=== PATIENT | male | born 1975 | race Caucasian/White ===

== ENCOUNTER 2018-06-05 09:30 | Emergency (ER) | payer MEDICAID ==
[~2018-06-05] VITALS: Ht 188 cm; Wt 81.8 kg
[2018-06-05] MEDS ORDERED: LORazepam 2 mg/ml vial IM ONE (09:40)
[2018-06-05 10:25] VITALS: BP 139/82
== END 2018-06-05 10:41 ==
LOC: ER 09:31
DX: Z02.89 Encounter for other administrative examinations (principal); S01.01XA Laceration without foreign body of scalp, initial encounter; S50.12XA Contusion of left forearm, initial encounter; R45.1 Restlessness and agitation; Y04.0XXA Assault by unarmed brawl or fight, initial encounter; Y93.89 Activity, other specified; Y92.89 Other specified places as the place of occurrence of the external cause; Y99.9 Unspecified external cause status
CPT/HCPCS: 73090; 96372; 99284; J2060

== ENCOUNTER 2021-05-21 01:05 | Emergency (ER) | payer MEDICAID ==
[~2021-05-21] VITALS: Ht 188 cm; Wt 94.8 kg
[2021-05-21 01:24] VITALS: BP 132/87
[2021-05-21] MEDS ORDERED: BACL10TA7 PO (17:21)
[2021-05-21] MEDS ORDERED: SERT-434 PO (17:21)
[2021-05-21] MEDS ORDERED: ARIP10TA57 PO (17:21)
== END 2021-05-21 03:40 | disposition left against medical advice (07) ==
LOC: ER 01:06
DX: R10.9 Unspecified abdominal pain (principal); R31.9 Hematuria, unspecified; Z53.21 Procedure and treatment not carried out due to patient leaving prior to being seen by health care provider

== ENCOUNTER 2021-05-21 07:36 | Emergency (ER) | payer MEDICAID ==
[~2021-05-21] VITALS: Ht 188 cm; Wt 90.9 kg
[2021-05-21 08:14] VITALS: BP 125/95
[2021-05-21 08:33] LABS: LYMPHOCYTES # (AUTO) 1.3 X10'3 (1.1-4.8); MONOCYTES # (AUTO) 1.5 X10'3 (0-0.9); NEUTROPHILS # (AUTO) 14.3 X10'3 (1.8-7.7); NEUTROPHILS % (AUTO) 83.1 % (42-75); WHITE BLOOD COUNT 17.2 X10'3 (4.5-11.0)
[2021-05-21 08:35] LABS: BASOPHILS # (AUTO) 0.1 X10'3 (0-0.2); BASOPHILS % (AUTO) 0.4 % (0-1); EOSINOPHILS % (AUTO) 0.1 % (0-6); HEMATOCRIT 44.2 % (42.0-52.0); LYMPHOCYTES % (AUTO) 7.8 % (21-51); MEAN CORPUSCULAR HGB CONC 33.9 g/dL (33.0-36.5); MEAN CORPUSCULAR VOLUME 97.6 FL (78-98); MEAN PLATELET VOLUME 8.7 FL (7.4-10.4); MONOCYTES % (AUTO) 8.6 % (2-12); PLATELET COUNT 208 X10'3 (140-440); RED BLOOD COUNT 4.53 X10'6 (4.70-6.10)
[2021-05-21 08:39] LABS: ALANINE AMINOTRANSFERASE 79 U/L (12-78); ALBUMIN 3.3 G/DL (3.4-5.0); ALBUMIN/GLOBULIN RATIO 0.9 (1.1-1.5); ALKALINE PHOSPHATASE 109 IU/L (46-116); ANION GAP 13 (8-16); ASPARTATE AMINO TRANSFERASE 31 U/L (10-37); BILIRUBIN,TOTAL 1.6 MG/DL (0.1-1.0); BLOOD UREA NITROGEN 10 MG/DL (7-18); CALCIUM 8.4 MG/DL (8.5-10.1); CHLORIDE 99 MMOL/L (99-107); CREATININE 0.83 MG/DL (0.60-1.10); GLUCOSE 110 MG/DL (70-104); LIPASE 539 U/L (73-393); POTASSIUM 3.9 MMOL/L (3.5-5.1); SODIUM 133 MMOL/L (135-145); TOTAL PROTEIN 7.1 G/DL (6.4-8.2); eGFR > 90 ML/MIN
[2021-05-21] MEDS ORDERED: iohexol 300mg/ml 100ml inj. ONE (11:47)
[2021-05-21] MEDS ORDERED: acetaminophen 325mg tablet PO PRN ×2 (14:15)
[2021-05-21] MEDS ORDERED: mag hydrox/Alum hydrox/simeth 30ml oral suspension PO PRN (14:15)
[2021-05-21] MEDS ORDERED: potassium Cl 40MEQ/1/2NS 520ml 520 ML IV PRN ×2 (14:15)
[2021-05-21] MEDS ORDERED: magnesium 2GM in 50ml NS 50 ML IV PRN (14:15)
[2021-05-21] MEDS ORDERED: HYDROcodone/acetaminophen 5mg/325mg tablet PO PRN (14:15)
[2021-05-21] MEDS ORDERED: haloperidol lactate 5mg/ml inj IM PRN (14:15)
[2021-05-21] MEDS ORDERED: normal saline 1000ml 1,000 ML IV SCH (14:15)
[2021-05-21] MEDS ORDERED: potassium Cl 20 mEq SR tablet PO PRN ×2 (14:15)
[2021-05-21] MEDS ORDERED: HYDROcodone/acetaminophen 10/325mg tab PO PRN (14:15)
[2021-05-21] MEDS ORDERED: ondansetron/PF 4mg/2ml inj IV PRN (14:15)
[2021-05-21] MEDS ORDERED: magnesium hydroxide 30ml (MOM) UD suspension PO PRN (14:15)
[2021-05-21] MEDS ORDERED: thiamine inj. 100 MG in normal saline 100ml IV soln 100 ML IV ONE (14:15)
[2021-05-21] MEDS ORDERED: LORazepam 2 mg/ml vial IV PRN (14:15)
[2021-05-21] MEDS ORDERED: haloperidol 5mg tablet PO PRN (14:15)
[2021-05-21] MEDS ORDERED: magnesium 4gm in 100ml NS 100 ML IV PRN (14:15)
[2021-05-21] MEDS ORDERED: BACL10TA7 PO (17:21)
[2021-05-21] MEDS ORDERED: SERT-434 PO (17:21)
[2021-05-21] MEDS ORDERED: ARIP10TA57 PO (17:21)
[2021-05-21] MEDS ORDERED: docusate sod 100mg capsule PO SCH (20:00)
[2021-05-21] MEDS ORDERED: enoxaparin 40mg/0.4ml syringe SQ SCH (20:00)
[2021-05-21] MEDS ORDERED: K and/or MAG REPLACEMENT MC SCH (20:00)
[2021-05-22] MEDS ORDERED: folic acid 1mg/0.2ml inj IV SCH (08:00)
[2021-05-22] MEDS ORDERED: thiamine inj. 100 MG in normal saline 100ml IV soln 100 ML IV SCH (08:00)
[2021-05-22] MEDS ORDERED: folic acid inj. 2 MG, thiamine inj. 100 MG, MVI, adult No.4 with vit. K 10 ML in dextro... IV SCH ×4 (08:00)
[2021-05-23] MEDS ORDERED: LORazepam 2 mg/ml vial IV PRN (14:15)
[2021-05-23] MEDS ORDERED: LORazepam 1 MG tablet PO PRN (14:15)
[2021-05-25] MEDS ORDERED: LORazepam 1 MG tablet PO PRN (14:15)
[2021-05-25] MEDS ORDERED: LORazepam 2 mg/ml vial IV PRN (14:15)
== END 2021-05-21 20:31 | disposition left against medical advice (07) ==
LOC: ER 07:37 → UNDOADMIN 14:20 → ED HOLD 14:20 → UNDODISIN 20:31
DX: K85.90 Acute pancreatitis without necrosis or infection, unspecified (principal); F10.10 Alcohol abuse, uncomplicated; R10.31 Right lower quadrant pain; R11.2 Nausea with vomiting, unspecified; R19.7 Diarrhea, unspecified; Y90.9 Presence of alcohol in blood, level not specified
CPT/HCPCS: 36415; 74176; 80053; 83605; 83690; 85025; 87040; 99285; Q9967; G0378

== ENCOUNTER 2021-05-24 06:51 | Inpatient (IN) | payer MEDICAID ==
[~2021-05-24] VITALS: Ht 188 cm; Wt 90.0 kg
[~2021-05-24 06:51] MED LIST: ARIP10TA57 PO; BACL10TA7 PO; SERT-434 PO
[2021-05-24 07:51] LABS: COLOR,URINE YELLOW (Yellow); UA COLLECTION TYPE CLN CATCH MIDSTREAM
[2021-05-24 07:52] LABS: CLARITY,URINE CLOUDY (Clear)
[2021-05-24 07:53] LABS: GLUCOSE, URINE NEGATIVE (Neg); KETONES,URINE >=160 mg/dl (Neg); PROTEIN,URINE TRACE mg/dl (Neg)
[2021-05-24 07:54] LABS: LEUKOCYTE ESTERASE ,URINE NEGATIVE (Neg); NITRITES, URINE NEGATIVE (Neg); OCCULT BLOOD,URINE TRACE-INTACT (Neg); UROBILINOGEN,URINE 0.2 E.U/dL (0.2-1.0)
[2021-05-24 07:58] LABS: HYALINE CASTS 0-3 /LPF (NEGATIVE); SQUAMOUS EPITHELIAL CELL,UR FEW /LPF (FEW)
[2021-05-24 07:59] LABS: BACTERIA,URINE 1+ /HPF (Neg); MUCUS STRANDS MANY /LPF (Neg)
[2021-05-24 08:00] LABS: RBC,URINE 0-2 /HPF (0-2)
[2021-05-24] MEDS ORDERED: ondansetron/PF 4mg/2ml inj IV ONE (09:25)
[2021-05-24] MEDS ORDERED: normal saline 1000ML IV soln IVB ONE (09:25)
--- NOTE | 2021-05-24 09:42 | NUR ---
RN not comfortable starting PIV to patient in [facility], pt AMA'd few days ago and ambulating self in front of the lobby and back to chair. [facility] aware and will wait until lab results are back.
[2021-05-24 10:37] LABS: BASOPHILS # (AUTO) 0.1 X10'3 (0-0.2); BASOPHILS % (AUTO) 0.5 % (0-1); EOSINOPHILS # (AUTO) 0.1 X10'3 (0-0.9); EOSINOPHILS % (AUTO) 0.4 % (0-6); HEMATOCRIT 44.3 % (42.0-52.0); HEMOGLOBIN 15.1 g/dl (14.0-17.9); LYMPHOCYTES # (AUTO) 1.7 X10'3 (1.1-4.8); LYMPHOCYTES % (AUTO) 11.2 % (21-51); MEAN CORPUSCULAR HEMOGLOBIN 32.6 PG (27.0-31.0); MEAN CORPUSCULAR HGB CONC 34.1 g/dL (33.0-36.5); MEAN CORPUSCULAR VOLUME 95.6 FL (78-98); MEAN PLATELET VOLUME 7.2 FL (7.4-10.4); MONOCYTES # (AUTO) 2.8 X10'3 (0-0.9); MONOCYTES % (AUTO) 18.5 % (2-12); NEUTROPHILS # (AUTO) 10.6 X10'3 (1.8-7.7); NEUTROPHILS % (AUTO) 69.4 % (42-75); PLATELET COUNT 486 X10'3 (140-440); RED BLOOD COUNT 4.64 X10'6 (4.70-6.10); RED CELL DISTRIBUTION WIDTH 14.2 % (11.5-14.5); WHITE BLOOD COUNT 15.2 X10'3 (4.5-11.0)
[2021-05-24] MEDS ORDERED: CefTRIAXone/D5W-Rocephin 1gm 50 ML IV ONE (10:45)
[2021-05-24] MEDS ORDERED: normal saline 1000ML IV soln IV ONE (10:45)
[2021-05-24 11:01] LABS: ALANINE AMINOTRANSFERASE 108 U/L (12-78); ALBUMIN 3.3 G/DL (3.4-5.0); ALBUMIN/GLOBULIN RATIO 0.7 (1.1-1.5); ALKALINE PHOSPHATASE 154 IU/L (46-116); ANION GAP 18 (8-16); ASPARTATE AMINO TRANSFERASE 70 U/L (10-37); BILIRUBIN,TOTAL 0.8 MG/DL (0.1-1.0); BLOOD UREA NITROGEN 11 MG/DL (7-18); BUN/CREATININE RATIO 13.8 (5.4-32.0); CALCIUM 8.8 MG/DL (8.5-10.1); CHLORIDE 94 MMOL/L (99-107); GLUCOSE 96 MG/DL (70-104); LIPASE 631 U/L (73-393); POTASSIUM 3.2 MMOL/L (3.5-5.1); SODIUM 133 MMOL/L (135-145); TOTAL CARBON DIOXIDE 20.6 MMOL/L (24-32); TOTAL PROTEIN 8.1 G/DL (6.4-8.2); eGFR > 90 ML/MIN
[2021-05-24] MEDS ORDERED: morphine 4 MG/ML inj SYRINge IV ONE ×2 (11:40→13:20)
[2021-05-24 11:42] LABS: PLATELET ESTIMATE INCREASED; TOTAL CELLS COUNTED 100
[2021-05-24 11:45] LABS: BANDS% (MANUAL) 7 % (0-10); LARGE PLATELETS FEW; METAMYLEOCYTES% (MANUAL) 1 % (0-0); POLYCHROMASIA FEW; TOXIC GRANULATION 1+
[2021-05-24] MEDS ORDERED: potassium Cl 20 mEq SR tablet PO PRN (13:25)
[2021-05-24] MEDS ORDERED: potassium Cl 40MEQ/1/2NS 520ml 520 ML IV PRN ×2 (13:25)
[2021-05-24] MEDS ORDERED: haloperidol 5mg tablet PO PRN (13:25)
[2021-05-24] MEDS ORDERED: HYDROcodone/acetaminophen 5mg/325mg tablet PO PRN (13:25)
[2021-05-24] MEDS ORDERED: dextrose 50%-water 50ml dispensing syringe IV PRN (13:25)
[2021-05-24] MEDS ORDERED: LORazepam 1 MG tablet PO PRN (13:25)
[2021-05-24] MEDS ORDERED: mag hydrox/Alum hydrox/simeth 30ml oral suspension PO PRN (13:25)
[2021-05-24] MEDS ORDERED: ondansetron/PF 4mg/2ml inj IV PRN (13:25)
[2021-05-24] MEDS ORDERED: magnesium 4gm in 100ml NS 100 ML IV PRN (13:25)
[2021-05-24] MEDS ORDERED: morphine 2 MG/ML inj. syringe IV PRN (13:25)
[2021-05-24] MEDS ORDERED: diphenhydrAMINE 25mg capsule PO PRN (13:25)
[2021-05-24] MEDS ORDERED: morphine 4 MG/ML inj SYRINge ONE (13:25)
[2021-05-24] MEDS ORDERED: haloperidol lactate 5mg/ml inj IM PRN (13:25)
[2021-05-24] MEDS ORDERED: LORazepam 2 mg/ml vial IV PRN (13:25)
[2021-05-24] MEDS ORDERED: magnesium 2GM in 50ml NS 50 ML IV PRN (13:25)
[2021-05-24] MEDS ORDERED: magnesium Cl slow-release 64mg tablet PO PRN (13:25)
[2021-05-24] MEDS ORDERED: bisacodyl 10mg suppository rectal RC PRN (13:25)
[2021-05-24] MEDS ORDERED: acetaminophen 325mg tablet PO PRN ×2 (13:25)
[2021-05-24] MEDS ORDERED: magnesium hydroxide 30ml (MOM) UD suspension PO PRN (13:25)
[2021-05-24] MEDS ORDERED: thiamine 100mg/ml 2ml inj. IV ONE (13:25)
[2021-05-24] MEDS ORDERED: acetaminophen 650mg rectal suppository RC PRN (13:25)
[2021-05-24 14:25] LABS: HEMOGLOBIN A1C 5.5 % (4.5-6.2)
[2021-05-24] MEDS: HYDROcodone/acetaminophen 10/325mg tab PO PRN (14:31)
[2021-05-24] MEDS: dextrose 5%-normal saline 1,000 ML IV SCH ×2 (14:39→21:24)
[2021-05-24 15:18] LABS: HIV ANTIBODY 1&2 RAPID NON-REACTIVE (Neg)
[2021-05-24] MEDS: morphine 2 MG/ML inj. syringe IV PRN ×2 (17:54→23:41)
[2021-05-24] MEDS: K and/or MAG REPLACEMENT MC SCH (18:34)
[2021-05-24 19:05] LABS: URINE AMPHETAMINE SCREEN NEGATIVE (Neg); URINE BARBITUATE SCREEN NEGATIVE (Neg); URINE BENZODIAZEPINES SCREEN POSITIVE (Neg); URINE CANNABINOID SCREEN POSITIVE (Neg); URINE COCAINE SCREEN NEGATIVE (Neg); URINE METHADONE SCREEN NEGATIVE (Neg); URINE OPIATE SCREEN NEGATIVE (Neg); URINE PHENCYCLIDINE SCREEN NEGATIVE (Neg)
[2021-05-24] MEDS: docusate sod 100mg capsule PO SCH (20:00)
[2021-05-24] MEDS: heparin, porcine 5000 units/ml vial SQ SCH (20:53)
[2021-05-24] MEDS: diatr meglu/diatrizoate 30ml oral sol.-(3 dose) bottle PO SCH (20:56)
[2021-05-25] MEDS: dextrose 5%-normal saline 1,000 ML IV SCH ×3 (00:33→21:57)
[2021-05-25] MEDS: diatr meglu/diatrizoate 30ml oral sol.-(3 dose) bottle PO SCH ×2 (07:20→10:06)
[2021-05-25 07:21] LABS: BASOPHILS % (AUTO) 0.3 % (0-1); EOSINOPHILS # (AUTO) 0.1 X10'3 (0-0.9); EOSINOPHILS % (AUTO) 0.5 % (0-6); HEMATOCRIT 37.8 % (42.0-52.0); HEMOGLOBIN 12.9 g/dl (14.0-17.9); LYMPHOCYTES # (AUTO) 1.4 X10'3 (1.1-4.8); LYMPHOCYTES % (AUTO) 7.8 % (21-51); MEAN CORPUSCULAR HEMOGLOBIN 32.2 PG (27.0-31.0); MEAN CORPUSCULAR HGB CONC 34.2 g/dL (33.0-36.5); MEAN CORPUSCULAR VOLUME 94.3 FL (78-98); MEAN PLATELET VOLUME 7.2 FL (7.4-10.4); MONOCYTES # (AUTO) 2.4 X10'3 (0-0.9); MONOCYTES % (AUTO) 13.5 % (2-12); NEUTROPHILS # (AUTO) 14.1 X10'3 (1.8-7.7); NEUTROPHILS % (AUTO) 77.9 % (42-75); PLATELET COUNT 476 X10'3 (140-440); RED BLOOD COUNT 4.01 X10'6 (4.70-6.10)
[2021-05-25] MEDS: docusate sod 100mg capsule PO SCH ×2 (07:21→20:00)
[2021-05-25] MEDS: multivitamins, therapeutics tablet PO SCH (07:21)
[2021-05-25] MEDS: folic acid 1mg tablet PO SCH (07:21)
[2021-05-25] MEDS: ARIPIPRAZOLE 10 MG TABLET PO SCH (07:21)
[2021-05-25] MEDS: sertraline 50mg tablet PO SCH (07:21)
[2021-05-25] MEDS: heparin, porcine 5000 units/ml vial SQ SCH ×2 (07:22→20:31)
[2021-05-25] MEDS: CefTRIAXone/D5W-Rocephin 1gm 50 ML IV SCH (07:22)
[2021-05-25] MEDS: potassium Cl 20 mEq SR tablet PO PRN (07:22)
[2021-05-25] MEDS: thiamine 100mg tablet PO SCH (07:22)
[2021-05-25] MEDS: morphine 2 MG/ML inj. syringe IV PRN ×2 (07:46→20:32)
[2021-05-25] MEDS: K and/or MAG REPLACEMENT MC SCH ×2 (07:47→20:00)
[2021-05-25 07:51] LABS: ALANINE AMINOTRANSFERASE 78 U/L (12-78); ALBUMIN 2.5 G/DL (3.4-5.0); ALBUMIN/GLOBULIN RATIO 0.7 (1.1-1.5); ALKALINE PHOSPHATASE 158 IU/L (46-116); ANION GAP 10 (8-16); ASPARTATE AMINO TRANSFERASE 47 U/L (10-37); BILIRUBIN,TOTAL 0.6 MG/DL (0.1-1.0); BLOOD UREA NITROGEN 5 MG/DL (7-18); BUN/CREATININE RATIO 6.6 (5.4-32.0); CALCIUM 8.2 MG/DL (8.5-10.1); CHLORIDE 101 MMOL/L (99-107); CHOL/HDL RATIO 4.8 (0.00-4.99); CHOLESTEROL 125 MG/DL (0-200); CREATININE 0.76 MG/DL (0.60-1.10); GLUCOSE 143 MG/DL (70-104); HDL CHOLESTEROL 26 MG/DL (35-60); LDL CHOLESTEROL 68 MG/DL (50-100); LIPASE 672 U/L (73-393); MAGNESIUM 2.3 MG/DL (1.5-2.4); PHOSPHORUS 2.7 MG/DL (2.3-4.5); POTASSIUM 3.3 MMOL/L (3.5-5.1); SODIUM 136 MMOL/L (135-145); TOTAL CARBON DIOXIDE 25.2 MMOL/L (24-32); TOTAL PROTEIN 6.3 G/DL (6.4-8.2); TRIGLYCERIDES 121 MG/DL (20-135); eGFR > 90 ML/MIN
[2021-05-25] MEDS ORDERED: iohexol 300mg/ml 100ml inj. ONE (10:01)
[2021-05-25] MEDS: HYDROcodone/acetaminophen 10/325mg tab PO PRN (14:40)
--- NOTE | 2021-05-25 15:07 | NUR ---
spoke with dr. shyanne abebe to give clear liquid diet.
[2021-05-25] MEDS: lactobacillus rhamnosus 10,000 MMU CELLS/CAPSULE PO SCH (20:32)
[2021-05-26] MEDS: metroNIDAZOLE-Flagyl 500mg/NS 100 ML IV SCH ×4 (00:25→22:00)
[2021-05-26] MEDS: morphine 2 MG/ML inj. syringe IV PRN ×3 (00:32→10:49)
[2021-05-26 01:43] LABS: BASOPHILS # (AUTO) 0.1 X10'3 (0-0.2); BASOPHILS % (AUTO) 0.7 % (0-1); EOSINOPHILS # (AUTO) 0.2 X10'3 (0-0.9); HEMATOCRIT 37.3 % (42.0-52.0); HEMOGLOBIN 12.6 g/dl (14.0-17.9); LYMPHOCYTES # (AUTO) 1.6 X10'3 (1.1-4.8); LYMPHOCYTES % (AUTO) 10.5 % (21-51); MEAN CORPUSCULAR HEMOGLOBIN 31.8 PG (27.0-31.0); MEAN CORPUSCULAR HGB CONC 33.6 g/dL (33.0-36.5); MEAN CORPUSCULAR VOLUME 94.7 FL (78-98); MEAN PLATELET VOLUME 7.4 FL (7.4-10.4); MONOCYTES # (AUTO) 1.8 X10'3 (0-0.9); MONOCYTES % (AUTO) 11.3 % (2-12); NEUTROPHILS % (AUTO) 76.5 % (42-75); PLATELET COUNT 501 X10'3 (140-440); RED BLOOD COUNT 3.94 X10'6 (4.70-6.10); RED CELL DISTRIBUTION WIDTH 14.5 % (11.5-14.5); WHITE BLOOD COUNT 15.7 X10'3 (4.5-11.0)
[2021-05-26 01:50] LABS: ALANINE AMINOTRANSFERASE 81 U/L (12-78); ALBUMIN 2.4 G/DL (3.4-5.0); ALBUMIN/GLOBULIN RATIO 0.6 (1.1-1.5); ALKALINE PHOSPHATASE 115 IU/L (46-116); ANION GAP 10 (8-16); ASPARTATE AMINO TRANSFERASE 41 U/L (10-37); BILIRUBIN,TOTAL 0.4 MG/DL (0.1-1.0); BLOOD UREA NITROGEN 3 MG/DL (7-18); BUN/CREATININE RATIO 4.6 (5.4-32.0); CALCIUM 8.2 MG/DL (8.5-10.1); CHLORIDE 102 MMOL/L (99-107); CREATININE 0.65 MG/DL (0.60-1.10); GLUCOSE 103 MG/DL (70-104); LIPASE 533 U/L (73-393); MAGNESIUM 2.3 MG/DL (1.5-2.4); PHOSPHORUS 3.3 MG/DL (2.3-4.5); POTASSIUM 3.1 MMOL/L (3.5-5.1); SODIUM 136 MMOL/L (135-145); TOTAL CARBON DIOXIDE 24.2 MMOL/L (24-32); TOTAL PROTEIN 6.2 G/DL (6.4-8.2); eGFR > 90 ML/MIN
[2021-05-26] MEDS: potassium Cl 20 mEq SR tablet PO PRN (05:48)
[2021-05-26] MEDS: thiamine 100mg tablet PO SCH (08:03)
[2021-05-26] MEDS: docusate sod 100mg capsule PO SCH ×2 (08:03→19:57)
[2021-05-26] MEDS: CefTRIAXone/D5W-Rocephin 1gm 50 ML IV SCH (08:03)
[2021-05-26] MEDS: heparin, porcine 5000 units/ml vial SQ SCH ×2 (08:04→22:00)
[2021-05-26] MEDS: folic acid 1mg tablet PO SCH (08:04)
[2021-05-26] MEDS: sertraline 50mg tablet PO SCH (08:04)
[2021-05-26] MEDS: dextrose 5%-normal saline 1,000 ML IV SCH ×3 (09:36→21:59)
[2021-05-26 13:16] LABS: HBSAG SCREEN Negative (Negative); HEP A AB, IGM Negative (Negative); HEPATITIS C ANTIBODY <0.1 s/co ratio (0.0-0.9)
[2021-05-26] MEDS: K and/or MAG REPLACEMENT MC SCH ×2 (18:42→19:15)
[2021-05-26] MEDS: lactobacillus rhamnosus 10,000 MMU CELLS/CAPSULE PO SCH ×2 (18:43→19:57)
[2021-05-26] MEDS: multivitamins, therapeutics tablet PO SCH (18:44)
--- NOTE | 2021-05-26 18:46 | NUR ---
0800 MEDICATIONS FLAGYL, THERAGIN, CULTURELLE, AND ABILIFY NOT GIVEN. FLAGYL RETIMED. ASKED PHARMACY ABOUT ADMINISTRATION OF ABILIFY REJI.
--- NOTE | 2021-05-26 18:47 | NUR ---
Pts daily abilify is not given from 8 am per emar. Pharmacist, Keshia, reports ok to give the dose now and ok to continue on am schedule tomorrow.
--- NOTE | 2021-05-26 19:40 | NUR ---
Pt broght to room 360a from er. Oriented to room and routine. received report from Jens at 1925. Addendum: 05/26/21 at 1999 by Nicolasa Valle RN Amended: Links added.
[2021-05-26 19:45] VITALS: BP 148/86
[2021-05-26] MEDS: ARIPIPRAZOLE 10 MG TABLET PO SCH (19:57)
[2021-05-26] MEDS: LORazepam 2 mg/ml vial IV PRN (22:00)
[2021-05-27] VITALS: BP 140/81
[2021-05-27] MEDS: morphine 2 MG/ML inj. syringe IV PRN ×5 (01:13→23:14)
[2021-05-27] MEDS: dextrose 5%-normal saline 1,000 ML IV SCH ×3 (05:25→23:10)
[2021-05-27] MEDS: LORazepam 2 mg/ml vial IV PRN ×4 (05:43→23:12)
[2021-05-27 06:13] LABS: BASOPHILS # (AUTO) 0.1 X10'3 (0-0.2); BASOPHILS % (AUTO) 0.6 % (0-1); EOSINOPHILS # (AUTO) 0.2 X10'3 (0-0.9); EOSINOPHILS % (AUTO) 1.7 % (0-6); HEMATOCRIT 36.2 % (42.0-52.0); HEMOGLOBIN 12.3 g/dl (14.0-17.9); LYMPHOCYTES # (AUTO) 1.5 X10'3 (1.1-4.8); MEAN CORPUSCULAR HEMOGLOBIN 32.6 PG (27.0-31.0); MEAN CORPUSCULAR VOLUME 95.9 FL (78-98); MEAN PLATELET VOLUME 7.3 FL (7.4-10.4); MONOCYTES # (AUTO) 1.2 X10'3 (0-0.9); MONOCYTES % (AUTO) 10.8 % (2-12); NEUTROPHILS # (AUTO) 8.5 X10'3 (1.8-7.7); NEUTROPHILS % (AUTO) 73.9 % (42-75); PLATELET COUNT 516 X10'3 (140-440); RED BLOOD COUNT 3.77 X10'6 (4.70-6.10); RED CELL DISTRIBUTION WIDTH 14.5 % (11.5-14.5); WHITE BLOOD COUNT 11.5 X10'3 (4.5-11.0)
--- NOTE | 2021-05-27 06:39 | NUR ---
Problems reprioritized. Patient report given, questions answered & plan of care reviewed with JANE GONZALEZ. Addendum: 05/27/21 at 0639 by Nicolasa Valle RN Amended: Links added.
[2021-05-27 06:42] LABS: ALANINE AMINOTRANSFERASE 56 U/L (12-78); ALBUMIN 2.3 G/DL (3.4-5.0); ALBUMIN/GLOBULIN RATIO 0.7 (1.1-1.5); ALKALINE PHOSPHATASE 116 IU/L (46-116); ANION GAP 9 (8-16); ASPARTATE AMINO TRANSFERASE 20 U/L (10-37); BILIRUBIN,TOTAL 0.4 MG/DL (0.1-1.0); BLOOD UREA NITROGEN 2 MG/DL (7-18); BUN/CREATININE RATIO 2.9 (5.4-32.0); CHLORIDE 102 MMOL/L (99-107); GLUCOSE 108 MG/DL (70-104); LIPASE 448 U/L (73-393); MAGNESIUM 2.2 MG/DL (1.5-2.4); PHOSPHORUS 3.8 MG/DL (2.3-4.5); SODIUM 136 MMOL/L (135-145); TOTAL CARBON DIOXIDE 25.5 MMOL/L (24-32); TOTAL PROTEIN 5.8 G/DL (6.4-8.2); eGFR > 90 ML/MIN
--- NOTE | 2021-05-27 06:51 | NUR ---
Patient in room [facility]. I have received report from ROSALIO LARA and had the opportunity to ask questions and assume patient care.
[2021-05-27] MEDS: metroNIDAZOLE-Flagyl 500mg/NS 100 ML IV SCH ×3 (07:16→14:58)
[2021-05-27] MEDS: lactobacillus rhamnosus 10,000 MMU CELLS/CAPSULE PO SCH ×2 (07:18→20:27)
[2021-05-27] MEDS: thiamine 100mg tablet PO SCH (07:18)
[2021-05-27] MEDS: folic acid 1mg tablet PO SCH (07:18)
[2021-05-27] MEDS: multivitamins, therapeutics tablet PO SCH (07:18)
[2021-05-27] MEDS: sertraline 50mg tablet PO SCH (07:18)
[2021-05-27] MEDS: ARIPIPRAZOLE 10 MG TABLET PO SCH (07:19)
[2021-05-27] MEDS: docusate sod 100mg capsule PO SCH ×2 (07:19→20:00)
[2021-05-27] MEDS: heparin, porcine 5000 units/ml vial SQ SCH ×2 (07:22→20:29)
[2021-05-27 08:00] VITALS: BP 137/93
[2021-05-27] MEDS: K and/or MAG REPLACEMENT MC SCH ×2 (08:00→20:00)
[2021-05-27] MEDS: CefTRIAXone/D5W-Rocephin 1gm 50 ML IV SCH (09:27)
[2021-05-27 11:00] VITALS: BP 149/83
[2021-05-27] MEDS ORDERED: potassium Cl 20 mEq SR tablet PO PRN (14:30)
[2021-05-27] MEDS ORDERED: magnesium 2GM in 50ml NS 50 ML IV PRN (14:30)
[2021-05-27] MEDS ORDERED: magnesium Cl slow-release 64mg tablet PO PRN (14:30)
[2021-05-27] MEDS ORDERED: potassium Cl 40MEQ/1/2NS 520ml 520 ML IV PRN (14:30)
[2021-05-27] MEDS ORDERED: magnesium 4gm in 100ml NS 100 ML IV PRN (14:30)
[2021-05-27] MEDS: potassium Cl 20 mEq SR tablet PO PRN ×2 (14:57→23:08)
[2021-05-27 15:59] LABS: C DIFF ANTIGEN POSITIVE (NEGATIVE); C DIFF SPECIMEN=DIARRHEA? ACCEPTABLE; C DIFFICILE TOXINS A&B POSITIVE (Neg)
[2021-05-27] MEDS: vancomycin 125mg/5ml ORAL solution 5ml UD bottle PO SCH ×2 (17:10→20:27)
--- NOTE | 2021-05-27 18:39 | NUR ---
patient seen by Dr Muller diet increased to full lqd. patient tolerating 50% of food. medicated q4hrly for abdominal pain with good effect. Sample sent down for cdiff,positive result. patient now in isolation for Cdiff. Report given to Brooks LARA
--- NOTE | 2021-05-27 18:45 | NUR ---
Patient in room [facility]. I have received report from CARLOS LARA and had the opportunity to ask questions and assume patient care.
[2021-05-27 20:00] VITALS: BP 141/90
[2021-05-28 00:05] VITALS: BP 142/90
[2021-05-28] MEDS: vancomycin 125mg/5ml ORAL solution 5ml UD bottle PO SCH ×4 (02:30→20:00)
[2021-05-28] MEDS: dextrose 5%-normal saline 1,000 ML IV SCH ×3 (06:05→22:39)
[2021-05-28 06:53] LABS: BASOPHILS # (AUTO) 0.1 X10'3 (0-0.2); BASOPHILS % (AUTO) 0.8 % (0-1); EOSINOPHILS # (AUTO) 0.2 X10'3 (0-0.9); EOSINOPHILS % (AUTO) 2.5 % (0-6); HEMATOCRIT 36.6 % (42.0-52.0); HEMOGLOBIN 12.5 g/dl (14.0-17.9); LYMPHOCYTES # (AUTO) 1.9 X10'3 (1.1-4.8); LYMPHOCYTES % (AUTO) 19.8 % (21-51); MEAN CORPUSCULAR HEMOGLOBIN 32.3 PG (27.0-31.0); MEAN CORPUSCULAR HGB CONC 34.2 g/dL (33.0-36.5); MEAN CORPUSCULAR VOLUME 94.4 FL (78-98); MEAN PLATELET VOLUME 7.2 FL (7.4-10.4); MONOCYTES # (AUTO) 1.1 X10'3 (0-0.9); MONOCYTES % (AUTO) 11.7 % (2-12); NEUTROPHILS # (AUTO) 6.2 X10'3 (1.8-7.7); NEUTROPHILS % (AUTO) 65.2 % (42-75); PLATELET COUNT 549 X10'3 (140-440); RED BLOOD COUNT 3.88 X10'6 (4.70-6.10); RED CELL DISTRIBUTION WIDTH 14.5 % (11.5-14.5); WHITE BLOOD COUNT 9.6 X10'3 (4.5-11.0)
[2021-05-28 07:00] VITALS: BP 132/83
[2021-05-28 07:09] LABS: ALANINE AMINOTRANSFERASE 49 U/L (12-78); ALBUMIN 2.3 G/DL (3.4-5.0); ALBUMIN/GLOBULIN RATIO 0.6 (1.1-1.5); ALKALINE PHOSPHATASE 101 IU/L (46-116); ANION GAP 8 (8-16); ASPARTATE AMINO TRANSFERASE 24 U/L (10-37); BILIRUBIN,TOTAL 0.3 MG/DL (0.1-1.0); BLOOD UREA NITROGEN 2 MG/DL (7-18); BUN/CREATININE RATIO 2.9 (5.4-32.0); CALCIUM 8.1 MG/DL (8.5-10.1); CHLORIDE 106 MMOL/L (99-107); GLUCOSE 113 MG/DL (70-104); LIPASE 517 U/L (73-393); MAGNESIUM 2.3 MG/DL (1.5-2.4); PHOSPHORUS 3.2 MG/DL (2.3-4.5); POTASSIUM 3.9 MMOL/L (3.5-5.1); SODIUM 137 MMOL/L (135-145); TOTAL CARBON DIOXIDE 23.2 MMOL/L (24-32); TOTAL PROTEIN 5.9 G/DL (6.4-8.2); eGFR > 90 ML/MIN
[2021-05-28] MEDS: sertraline 50mg tablet PO SCH (07:49)
[2021-05-28] MEDS: thiamine 100mg tablet PO SCH (07:50)
[2021-05-28] MEDS: ARIPIPRAZOLE 10 MG TABLET PO SCH (07:50)
[2021-05-28] MEDS: lactobacillus rhamnosus 10,000 MMU CELLS/CAPSULE PO SCH ×2 (07:50→21:57)
[2021-05-28] MEDS: multivitamins, therapeutics tablet PO SCH (07:50)
[2021-05-28] MEDS: folic acid 1mg tablet PO SCH (07:50)
[2021-05-28] MEDS: LORazepam 2 mg/ml vial IV PRN ×3 (07:51→22:00)
[2021-05-28] MEDS: morphine 2 MG/ML inj. syringe IV PRN ×3 (07:51→21:59)
[2021-05-28] MEDS: heparin, porcine 5000 units/ml vial SQ SCH ×2 (07:52→21:59)
[2021-05-28] MEDS: docusate sod 100mg capsule PO SCH ×2 (07:52→21:58)
[2021-05-28] MEDS: K and/or MAG REPLACEMENT MC SCH ×2 (08:00→20:00)
--- NOTE | 2021-05-28 09:47 | NUR ---
Initial: Pt admit for acute alcohol related pancreatitis and UTI. Currently receiving routine Thiamine, Folic acid, and MVI. Pt initially NPO with diet advancement to clear liquids, documented with 50% PO intake. Diet has been advanced to full liquids, pending documentation of PO intake since diet advancement. LBM 05/27, documented with diarrhea. CT shows descending and sigmoid colon colitis and pt positive for C.diff per MD notes. Will continue to follow closely and make recommendations as appropriate. Recommendations: 1) Advance to low fat diet as medically indicated 2) Monitor need for ONS 3) Continue routine Thiamine, Folic acid, and MVI for EtOH hx 4) Bowel care per rx 5) Scaled weight this admit; weekly scaled weights thereafter Addendum: 05/28/21 at [address] Amended: Links added.
[2021-05-28 18:00] VITALS: BP 126/85
--- NOTE | 2021-05-28 19:06 | NUR ---
patient up and about in room continues on PO vanco for cdiff. Stooling slowed down 2-3 BM's today. Ativan and MS for pain and withdrawals with effect. patient resting on and off during shift. no evidence of withdrawals . Report given to guilherme LARA
--- NOTE | 2021-05-28 19:43 | NUR ---
Patient in room [facility]. I have received report from Licha LARA and had the opportunity to ask questions and assume patient care.
[2021-05-29] VITALS: BP 124/70
[2021-05-29] MEDS: vancomycin 125mg/5ml ORAL solution 5ml UD bottle PO SCH ×2 (04:01→08:31)
[2021-05-29] MEDS: dextrose 5%-normal saline 1,000 ML IV SCH (05:25)
--- NOTE | 2021-05-29 06:08 | NUR ---
Problems reprioritized. Patient report given, questions answered & plan of care reviewed with Lindsay LARA.
--- NOTE | 2021-05-29 06:18 | NUR ---
Patient in room [facility]. I have received report from JANE Rai and had the opportunity to ask questions and assume patient care.
[2021-05-29 06:45] LABS: BASOPHILS # (AUTO) 0.1 X10'3 (0-0.2); BASOPHILS % (AUTO) 1.2 % (0-1); EOSINOPHILS # (AUTO) 0.2 X10'3 (0-0.9); EOSINOPHILS % (AUTO) 2.2 % (0-6); HEMATOCRIT 41.3 % (42.0-52.0); HEMOGLOBIN 13.5 g/dl (14.0-17.9); LYMPHOCYTES # (AUTO) 2.2 X10'3 (1.1-4.8); LYMPHOCYTES % (AUTO) 25.5 % (21-51); MEAN CORPUSCULAR HEMOGLOBIN 31.6 PG (27.0-31.0); MEAN CORPUSCULAR HGB CONC 32.7 g/dL (33.0-36.5); MEAN CORPUSCULAR VOLUME 96.7 FL (78-98); MEAN PLATELET VOLUME 7.6 FL (7.4-10.4); MONOCYTES % (AUTO) 11.8 % (2-12); NEUTROPHILS # (AUTO) 5.2 X10'3 (1.8-7.7); NEUTROPHILS % (AUTO) 59.3 % (42-75); PLATELET COUNT 630 X10'3 (140-440); RED BLOOD COUNT 4.27 X10'6 (4.70-6.10); RED CELL DISTRIBUTION WIDTH 14.7 % (11.5-14.5); WHITE BLOOD COUNT 8.7 X10'3 (4.5-11.0)
[2021-05-29 07:10] LABS: ALANINE AMINOTRANSFERASE 58 U/L (12-78); ALBUMIN 2.7 G/DL (3.4-5.0); ALBUMIN/GLOBULIN RATIO 0.7 (1.1-1.5); ALKALINE PHOSPHATASE 111 IU/L (46-116); ANION GAP 9 (8-16); ASPARTATE AMINO TRANSFERASE 34 U/L (10-37); BILIRUBIN,TOTAL 0.4 MG/DL (0.1-1.0); BLOOD UREA NITROGEN 3 MG/DL (7-18); BUN/CREATININE RATIO 4.2 (5.4-32.0); CALCIUM 8.6 MG/DL (8.5-10.1); CHLORIDE 106 MMOL/L (99-107); CREATININE 0.72 MG/DL (0.60-1.10); GLUCOSE 104 MG/DL (70-104); LIPASE 496 U/L (73-393); MAGNESIUM 2.2 MG/DL (1.5-2.4); PHOSPHORUS 3.6 MG/DL (2.3-4.5); POTASSIUM 3.9 MMOL/L (3.5-5.1); SODIUM 140 MMOL/L (135-145); TOTAL CARBON DIOXIDE 24.6 MMOL/L (24-32); TOTAL PROTEIN 6.5 G/DL (6.4-8.2); eGFR > 90 ML/MIN
[2021-05-29] MEDS: K and/or MAG REPLACEMENT MC SCH (08:00)
[2021-05-29] MEDS: docusate sod 100mg capsule PO SCH (08:00)
[2021-05-29] MEDS: lactobacillus rhamnosus 10,000 MMU CELLS/CAPSULE PO SCH (08:16)
[2021-05-29] MEDS: thiamine 100mg tablet PO SCH (08:16)
[2021-05-29] MEDS: ARIPIPRAZOLE 10 MG TABLET PO SCH (08:16)
[2021-05-29] MEDS: sertraline 50mg tablet PO SCH (08:16)
[2021-05-29] MEDS: multivitamins, therapeutics tablet PO SCH (08:16)
[2021-05-29] MEDS: folic acid 1mg tablet PO SCH (08:16)
[2021-05-29] MEDS: heparin, porcine 5000 units/ml vial SQ SCH (08:17)
[2021-05-29] MEDS: LORazepam 2 mg/ml vial IV PRN (08:30)
[2021-05-29] MEDS: morphine 2 MG/ML inj. syringe IV PRN (08:30)
[2021-05-29 08:57] VITALS: BP 151/88
[2021-05-29 10:27] VITALS: BP 134/76
[2021-05-29] MEDS ORDERED: LACT1CAP26 PO (10:28)
[2021-05-29] MEDS ORDERED: FOLI0.4T6 PO (10:28)
[2021-05-29] MEDS ORDERED: THIA50TA10 PO (10:28)
[2021-05-29] MEDS ORDERED: MULT-25 PO (10:28)
--- NOTE | 2021-05-29 11:25 | NUR ---
Patient is positive for C-Diff. Addendum: 05/29/21 at 1130 by Sendy MERIDA Amended: Links added.
--- NOTE | 2021-05-29 11:31 | NUR ---
Patient has been receiving morphine for pain. Worried no meds for pain control when dc. Dr. Muller notified. Awaiting call back from Dr. Mulelr.
[2021-05-29] MEDS ORDERED: HYDR-3965 PO (12:09)
--- NOTE | 2021-05-29 12:17 | NUR ---
Dr. Muller called back and stated he will dc patient with [facility]. Awaiting prescription for patient.
--- NOTE | 2021-05-29 13:00 | NUR ---
Patient alert and oriented in no apparent distress. Discussed with patient discharge instructions. Patient verbalizes understanding of teaching. No questions per patient. Patient ready for dc and waiting for his ride to be here.
--- NOTE | 2021-05-29 13:08 | NUR ---
patient aware that his norco was also sent to [facility]
[2021-05-29 13:23] VITALS: BP 158/91
--- NOTE | 2021-05-29 14:09 | NUR ---
Patient dc'd with all personal belongings. 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
== END 2021-05-29 14:01 | disposition home or self-care (01) | DRG 282 ==
LOC: ER 06:53 → ED HOLD 13:30 → SUR 3N 05-26 19:40
PROVIDERS: ADMIT Family Medicine; ATTEND Family Medicine
PROC: BW211ZZ Computerized Tomography (CT Scan) of Abdomen and Pelvis using Low Osmolar Contrast (ICD-10-PCS; principal; 2021-05-25)
DX: K85.20 Alcohol induced acute pancreatitis without necrosis or infection (principal); A04.72 Enterocolitis due to Clostridium difficile, not specified as recurrent; K76.0 Fatty (change of) liver, not elsewhere classified; E87.1 Hypo-osmolality and hyponatremia; Z20.822 Contact with and (suspected) exposure to COVID-19; F41.8 Other specified anxiety disorders; E87.6 Hypokalemia; F10.20 Alcohol dependence, uncomplicated; F12.90 Cannabis use, unspecified, uncomplicated; F17.200 Nicotine dependence, unspecified, uncomplicated; N39.0 Urinary tract infection, site not specified; Z81.1 Family history of alcohol abuse and dependence; Z71.6 Tobacco abuse counseling; Z71.41 Alcohol abuse counseling and surveillance of alcoholic; Z71.51 Drug abuse counseling and surveillance of drug abuser
CPT/HCPCS: 36415; 71045; 74177; 74181; 76937; 80053; 80061; 80305; 81001; 82948; 83036; 83605; 83690; 83735; 84100; 84145; 84443; 85007; 85025; 86703; 86705; 86706; 86709; 86803; 87040; 87081; 87088; 87324; 87340; 87449; 87635; 96361; 96365; 96366; 96375; 99285; G0378; J0696; J1644; J2060; J2270; J2405; J3411; J3480; J3490; J7030; J7042; Q9963; Q9967